=== PATIENT | female | born 1935 | race Caucasian/White ===

== ENCOUNTER → 2017-12-12 | Outpatient (CLI) | payer OTHER ==
[~2017-12-12] MED LIST: ASPIRIN81 M2; GLUCOPHAGE XR500 MG; LIPITOR20 MG; NEURONTIN300 MG; PROTONIX40 MG; SIMVASTATIN10 MG; SYNTHROID50 MCG; TOPROL XL25 MG; ZANTAC300 MG
== END | disposition home or self-care (01) ==
LOC: NUCLEAR 14:10
DX: I87.2 Venous insufficiency (chronic) (peripheral) (principal)

== ENCOUNTER → 2018-01-22 | Outpatient (CLI) | payer OTHER | END | disposition home or self-care (01) | LOC: LAB 08:41 | DX: Z85.3 Personal history of malignant neoplasm of breast (principal); Z08 Encounter for follow-up examination after completed treatment for malignant neoplasm; E55.9 Vitamin D deficiency, unspecified; E53.8 Deficiency of other specified B group vitamins; E03.8 Other specified hypothyroidism; D68.8 Other specified coagulation defects ==

== ENCOUNTER → 2018-01-22 | Outpatient (CLI) | payer OTHER | END | disposition home or self-care (01) | LOC: MAMO-SONO 08:42 | DX: Z85.3 Personal history of malignant neoplasm of breast (principal); Z08 Encounter for follow-up examination after completed treatment for malignant neoplasm; R22.32 Localized swelling, mass and lump, left upper limb ==

== ENCOUNTER 2018-06-18 09:27 | Outpatient (CLI) | payer OTHER | END 2018-06-18 10:00 | disposition home or self-care (01) | LOC: NUCLEAR 09:27 | DX: M81.0 Age-related osteoporosis without current pathological fracture (principal) ==

== ENCOUNTER 2018-12-10 10:11 | Outpatient (CLI) | payer OTHER | END 2018-12-10 10:57 | disposition home or self-care (01) | LOC: SONOGRAMA 10:11 → MAMO-SONO 10:15 → SONOGRAMA 10:57 | DX: R10.84 Generalized abdominal pain (principal) ==

== ENCOUNTER 2018-12-17 02:54 | Inpatient (IN) | payer OTHER ==
[~2018-12-17] VITALS: Ht 157.5 cm; Wt 56.7 kg
--- NOTE | 2018-12-17 03:21 | NUR ---
SE RECIBE PACIENTE ALERTA Y ORIENTADA X3 EN EMBULANCIA CON LA QUEJA PRINCIPAL DE DOLOR ABDOMINAL EN LA PARTE INFERIOR, VOMITOS X3 Y DIARREAS X3 DESDE LENA EN LA MANANA.
--- NOTE | 2018-12-17 03:40 | NUR ---
SE ORIENTA SOBRE TRAAMIENTO. SE GARCIA MUESTRAS DE LABORATORIO ORDENADAS. CANALIZADA EN ANTEBRAZO DERECHO DE AMBULANCIA. GARRY DE EDEMA O ENROJECIMIENTO. SE ADMINISTRAN MEDICAMENTOS ORDENADOS. SE MANTIENE EN OBSERVACION POR CAMBIOS.
--- NOTE | 2018-12-17 15:00 | NUR ---
PACIENTE ALERTA Y ORIENTADA X3. EN MERE CON BARANDAS ELEVADAS. NPO AL MOMENTO. IV FLUID PATENTE Y GARRY DE EDEMA Y ERITEMA. PENDIENTE VISITA DE DR. OHARA.
== END 2018-12-23 12:33 | disposition home or self-care (01) | DRG 392 ==
LOC: ER 02:54 → SURH 19:14
PROVIDERS: ADMIT Internal Medicine Cardiovascular Disease
PROC: BW21ZZZ Computerized Tomography (CT Scan) of Abdomen and Pelvis (ICD-10-PCS; principal; 2018-12-17)
PROC: 02HV33Z Insertion of Infusion Device into Superior Vena Cava, Percutaneous Approach (ICD-10-PCS; 2018-12-18)
DX: K52.89 Other specified noninfective gastroenteritis and colitis (principal); E11.9 Type 2 diabetes mellitus without complications; E03.8 Other specified hypothyroidism

== ENCOUNTER 2019-09-03 07:53 | Outpatient (CLI) | payer OTHER | END 2019-09-03 08:00 | disposition home or self-care (01) | LOC: SONOGRAMA 07:53 → MAMO-SONO 08:15 | DX: R10.84 Generalized abdominal pain (principal) ==

== ENCOUNTER 2019-11-21 11:45 | Outpatient (CLI) | payer OTHER | END 2019-11-21 11:52 | disposition home or self-care (01) | LOC: RAD 11:45 | DX: J44.9 Chronic obstructive pulmonary disease, unspecified (principal); M12.88 Other specific arthropathies, not elsewhere classified, other specified site ==

== ENCOUNTER 2020-04-24 15:15 | Emergency (ER) | payer OTHER ==
[~2020-04-24] VITALS: Ht 160 cm; Wt 59.0 kg
[2020-04-24] MEDS ORDERED: ZOFRAN8 MG PO (19:45)
[2020-04-24] MEDS ORDERED: PEPCID AC20 MG PO (19:45)
== END 2020-04-24 20:44 | disposition home or self-care (01) ==
LOC: ER 15:15
DX: R10.13 Epigastric pain (principal); R11.2 Nausea with vomiting, unspecified; Z03.818 Encounter for observation for suspected exposure to other biological agents ruled out

== ENCOUNTER 2020-04-27 09:02 | Emergency (ER) | payer OTHER ==
[~2020-04-27] VITALS: Ht 160 cm; Wt 54.4 kg
[~2020-04-27 09:02] MED LIST changes: +PEPCID AC20 MG PO; +ZOFRAN8 MG PO
[2020-04-27] MEDS ORDERED: INTESTINEX680 M1 PO (15:58)
[2020-04-27] MEDS ORDERED: PEPCID AC20 MG PO (15:58)
== END 2020-04-27 17:52 | disposition home or self-care (01) ==
LOC: ER 09:02
DX: K52.89 Other specified noninfective gastroenteritis and colitis (principal); Z03.818 Encounter for observation for suspected exposure to other biological agents ruled out; R19.7 Diarrhea, unspecified

== ENCOUNTER → 2020-04-30 | Emergency (ER) | payer OTHER ==
[~2020-04-30] VITALS: Ht 165.1 cm; Wt 61.2 kg
[~2020-04-30] MED LIST changes: +INTESTINEX680 M1 PO
== END | disposition left against medical advice (07) ==
LOC: ER 11:27
DX: R10.84 Generalized abdominal pain (principal)

== ENCOUNTER 2020-06-03 10:11 | Outpatient (CLI) | payer OTHER | END 2020-06-03 10:14 | disposition home or self-care (01) | LOC: TOM 10:11 | PROVIDERS: ATTEND Internal Medicine Cardiovascular Disease | DX: J44.9 Chronic obstructive pulmonary disease, unspecified (principal) ==

== ENCOUNTER 2020-06-15 12:45 | Inpatient (IN) | payer OTHER ==
[~2020-06-15] VITALS: Ht 160 cm; Wt 68.0 kg
== END 2020-06-20 11:13 | disposition home or self-care (01) | DRG 392 ==
LOC: ER 12:45 → SEC-K 06-16 06:27 → MEDJ 06-16 06:27 → MEDI 06-16 21:57 → SEC-K 06-17 00:16 → MEDJ 06-17 11:03
PROVIDERS: ADMIT Internal Medicine Cardiovascular Disease; ATTEND Internal Medicine Cardiovascular Disease
PROC: BW21ZZZ Computerized Tomography (CT Scan) of Abdomen and Pelvis (ICD-10-PCS; principal; 2020-06-15)
DX: K52.89 Other specified noninfective gastroenteritis and colitis (principal); E03.8 Other specified hypothyroidism; E11.9 Type 2 diabetes mellitus without complications; R10.32 Left lower quadrant pain; B34.9 Viral infection, unspecified; K29.70 Gastritis, unspecified, without bleeding; R07.9 Chest pain, unspecified; Z20.828 Contact with and (suspected) exposure to other viral communicable diseases

== ENCOUNTER 2021-07-07 19:31 | Emergency (ER) | payer OTHER ==
[~2021-07-07] VITALS: Ht 162.6 cm; Wt 63.5 kg
[2021-07-07] MEDS ORDERED: NAPROXEN375 MG PO (22:57)
== END 2021-07-08 06:40 | disposition home or self-care (01) ==
LOC: ER 19:31
DX: S50.11XA Contusion of right forearm, initial encounter (principal); S50.01XA Contusion of right elbow, initial encounter; S60.211A Contusion of right wrist, initial encounter; S40.012A Contusion of left shoulder, initial encounter; S40.011A Contusion of right shoulder, initial encounter; S30.0XXA Contusion of lower back and pelvis, initial encounter; W18.39XA Other fall on same level, initial encounter; Y93.89 Activity, other specified; Y92.091 Bathroom in other non-institutional residence as the place of occurrence of the external cause; Y99.8 Other external cause status; E11.9 Type 2 diabetes mellitus without complications